=== PATIENT | male | born 1970 | race Caucasian/White ===

== ENCOUNTER 2022-11-15 07:03 | Day surgery (SDC) | payer OTHER ==
[~2022-11-15] VITALS: Ht 177.8 cm; Wt 117.9 kg
[2022-11-15] MEDS ORDERED: LIDOCAINE 2% 1000 MG/50 ML VIAL INJ ONE (07:28)
== END 2022-11-15 09:15 | disposition home or self-care (01) ==
LOC: MDS 07:03 → MMU 07:05 → MDS 09:15
PROVIDERS: ATTEND Internal Medicine Gastroenterology
DX: K75.81 Nonalcoholic steatohepatitis (NASH) (principal); I10 Essential (primary) hypertension; Z79.899 Other long term (current) drug therapy
CPT/HCPCS: 47000; 76942; J2001; Q0092